=== PATIENT | female | born 2005 | race Caucasian/White ===

== ENCOUNTER 2023-10-21 06:21 | Day surgery (SDC) | payer OTHER, SELFPAY ==
[2023-10-21 08:20] VITALS: BP 135/85
[2023-10-21 08:28] VITALS: BMI 18.4
[2023-10-21 10:05] VITALS: BP 116/79
[2023-10-21 10:15] VITALS: BP 119/72
[2023-10-21 10:30] VITALS: BP 110/77
[2023-10-21 10:45] VITALS: BP 111/71
== END 2023-10-21 11:38 | disposition home or self-care (01) ==
LOC: GI 06:21
PROVIDERS: ATTENDING PHYSICIAN Internal Medicine
DX: E46 Unspecified protein-calorie malnutrition (principal); K44.9 Diaphragmatic hernia without obstruction or gangrene; K31.89 Other diseases of stomach and duodenum; Z46.59 Encounter for fitting and adjustment of other gastrointestinal appliance and device
CPT/HCPCS: 43241; 43239; 88305; 74018; 88342

== ENCOUNTER 2023-12-06 13:56 | Emergency (ER) | payer OTHER, SELFPAY ==
[2023-12-06 13:57] VITALS: BP 130/91
--- NOTE | 2023-12-06 15:15 | ED.GENMED ---
History of Present Illness
General
Chief Complaint: Catheter/Tube Problem
Time Seen by Provider: 12/06/23 15:06
History of Present Illness
History of Present Illness:
Patient presents to the emergency department with concern for nasogastric jejunal tube displacement. Notes this morning it started feeling abnormal and she was vomiting everything she ate. Feels that there may be a coil in her throat. Normally is
at 115 cm but it has been sucked in to around 125 cm.
Phy Exam
Physical Exam
Physical Exam:
General: uncomfortable appearing, holding emesis basin,
Head: NCAT
ENT: R nare with tube at 125cm, able to be drawn back to 115cm. Patient still uncomfortable
Neck, Normal in appearance, no swelling
Respiratory: No Respiratory distress
Abdomen: No distension, no tenderness
Ext: no edema
Neuro: GRACIA, AOx4
Psych: Normal affect
Skin: Normal color
Course
Orders/Labs/Results
Orders:
Orders
12/06/23 15:13
Abdomen Xray - 1 View [CR Abdomen - 1 View] Urgent
Comment:
Reason For Exam: Nasogastric jejunal tube
12/06/23 15:15
CR Chest - 2 Views Urgent
Comment:
Reason For Exam: nasogastric jejunal tube placement
Vital Signs
Initial and Last Documented VS:
Initial Vital Signs
Temp Pulse Resp BP Pulse Ox
99.7 F 100 18 130/91 100
12/06/23 13:57 12/06/23 13:57 12/06/23 13:57 12/06/23 13:57 12/06/23 13:57
Last Documented Vital Signs
Temp Pulse Resp BP Pulse Ox
99.7 F 100 18 130/91 100
12/06/23 13:57 12/06/23 13:57 12/06/23 13:57 12/06/23 13:57 12/06/23 13:57
*Critical Care Note
Total Time (30-74mins, 75-104mins- exclusive of procedures): Not Applicable
ED Attending Note
ED Attending Note
ED Attending Note:
possible misplacement of feeding tube. No resistance to withdrawal to 115cm though patient visibly uncomfortable. Will obtain xrays to view positioning
xrays appear similar to May
patient feeling better after withdrawing NG tube 5 cm. resting comfortably
able to flush NG
patient still resting comfortably
will instruct to follow up with GI doctor
-
Portions of this chart may have been created with voice recognition software.� Occasional wrong word or��sound alike� substitutions may have occurred due to the inherent limitations of voice recognition software.
Discharge Plan
Departure
Patient Disposition: Home (Routine Discharge)
Date of Disposition: 12/06/23
Time of Disposition: 16:50
Patient with high blood pressure during this ER visit?: No
Discharge Problem:
Complication of feeding tube
Prescriptions:
No Action
dextroamphetamine-amphetamine [Adderall] 15 mg Tablet
5 mg PO DAILY PRN (Reason: as needed when adderol wears off)
dextroamphetamine-amphetamine [Adderall XR] 15 mg Capsule,Extended Release 24hr
15 mg PO DAILY
medroxyprogesterone [Depo-Provera] 150 mg/mL Syringe
150 mg IM [id number]
Referrals:
UNKNOWN - PT DOES,NOT KNOW [Family Provider] -
Activity Restrictions/Additional Instructions:
Please call your GI doctor for follow-up appointment. Return to the emergency department with any new or recurring symptoms
Interventions
Interventions:
*Risk Screen - Suicide Last Done: 12/06/23 14:00
*General Assessment Last Done: 12/06/23 14:00
*Neglect/Abuse Screening Last Done: 12/06/23 14:00
ED- Fall Risk Assessment Last Done: 12/06/23 15:14
*ED COVID-19 Vaccine History Last Done: 12/06/23 15:07
KG-Rnjyqv-Hlaklnkace Assessment Last Done: 12/06/23 15:14
ED-Female Genitourinary Assessment Last Done: 12/06/23 15:14
Discharge Date and Time
Print Language: BURUNDIAN
== END 2023-12-06 17:05 | disposition home or self-care (01) ==
LOC: EMR 13:56
PROVIDERS: EMERGENCY PHYSICIAN Emergency Medicine
DX: Z46.59 Encounter for fitting and adjustment of other gastrointestinal appliance and device (principal); R11.10 Vomiting, unspecified
CPT/HCPCS: 99283; 71046; 74018

== ENCOUNTER → 2024-04-30 08:02 | Outpatient (REF) | payer OTHER, SELFPAY | LOC: REG 08:02 | PROVIDERS: ATTENDING PHYSICIAN Internal Medicine; FAMILY PHYSICIAN Physician Assistant Medical | DX: Z97.8 Presence of other specified devices (principal) | CPT/HCPCS: 74019 ==

== ENCOUNTER 2024-06-08 13:51 | Day surgery (SDC) | payer OTHER, SELFPAY ==
[2024-06-08 11:53] VITALS: BP 125/80
[2024-06-08 11:58] VITALS: BMI 19.5
[2024-06-08 12:19] VITALS: BMI 19.5
[2024-06-08 13:36] VITALS: BP 102/65
[2024-06-08 13:50] VITALS: BP 101/54
[2024-06-08 14:05] VITALS: BP 96/65
== END 2024-06-08 14:45 | disposition home or self-care (01) ==
LOC: GI 13:51
PROVIDERS: ATTENDING PHYSICIAN Internal Medicine
DX: T18.3XXA Foreign body in small intestine, initial encounter (principal); W44.8XXA Other foreign body entering into or through a natural orifice, initial encounter; K44.9 Diaphragmatic hernia without obstruction or gangrene
CPT/HCPCS: 43247

== ENCOUNTER 2024-11-15 20:30 | Inpatient (IN) | payer OTHER, SELFPAY ==
[2024-11-15 20:42] VITALS: BP 116/76
[2024-11-15 21:00] LABS: % Basophils 1.9 % (0-2); % Eosinophils 3.4 % (0-6); % Immature Granulocytes 0.2 % (0-0.5); % Lymphocytes 32.3 % (20.5-51.1); % Monocytes 8.5 % (1.7-9.3); % Neutrophils 53.7 % (42.2-75.2); Absolute Basophils 0.1 10^3/uL (0-0.2); Absolute Eosinophils 0.2 10^3/uL (0-0.7); Absolute Lymphocytes 1.5 10^3/uL (1.2-3.4); Absolute Monocytes 0.4 10^3/uL (0.1-0.6); Absolute Neutrophils 2.5 10^3/uL (1.4-6.5); Hematocrit 34.5 % (37.0-47.0); Hemoglobin 12.3 g/dL (12.0-16.0); Mean Corp Hgb Conc. 35.7 g/dL (33.0-37.0); Mean Corpuscular Hgb 29.9 pg (27.0-31.0); Mean Corpuscular Volume 83.9 fL (81.0-99.0); Mean Platelet Volume 11.6 fL (7.4-10.4); Nucleated Red Blood Cells % 0 %; Platelet Count 217 10^3/uL (130-400); Red Blood Cell Count 4.11 10^6/uL (4.20-5.40); Red Cell Dist. Width 11.7 % (11.5-14.5); White Blood Cell Count 4.7 10^3/uL (4.8-10.8)
[2024-11-15 21:20] LABS: HCG, Serum Qualitative Screen Negative
[2024-11-15 21:28] LABS: ALT (SGPT) 12 U/L (0-35); AST (SGOT) 18 U/L (14-36); Albumin 4.5 g/dl (3.5-5.0); Alkaline Phosphatase 58 U/L (38-126); Blood Urea Nitrogen 12 mg/dl (7-17); Calcium 10.1 mg/dl (8.4-10.2); Carbon Dioxide 25 mmol/L (22-30); Chloride 108 mmol/L (98-107); Glucose 105 mg/dl (70-99); Potassium 4.5 mmol/L (3.5-5.1); Sodium 140 mmol/L (135-145); Total Bilirubin 0.8 mg/dl (0.2-1.3); Total Protein 7.1 g/dl (6.3-8.2); eGFR > 60.00
--- NOTE | 2024-11-15 23:15 | ED.SKININJ ---
HPI-Injury
General
Chief Complaint: Bite
Source: patient
Exam Limitations: none
Time Seen by Provider: 11/15/24 22:40
Nursing documentation reviewed up to this point in time: agreed with
History of Present Illness-Injury
Is this injury a work related problem?: No
Initial Injury comments:
Pt presents to ED secondary to worsening right hand pain with swelling, despite taking doxycycline for 4 days, after dog bite injury at work. Patient works at [employer] where the injury occurred, when she was trying to receive the dog from it's
product owner. After the incident, patient was evaluated afterwards and she received tetanus vaccination along with antibiotics. Dog's vaccinations are up-to-date. Denies any other injury. Denies fever or chills. Denies nausea or vomiting. Patient has
noted 'pus drainage' from her hand over the past 24 hours, along with increased pain.
Review of Systems
Review of Systems
Allergies reviewed?: Yes
All Other Systems: ROS reviewed and negative except as documented in HPI and ROS
Constitutional: Reports no symptoms
Respiratory: Reports no symptoms
Cardiac: Reports no symptoms
ABD/GI: Reports no symptoms
Musculoskeletal: Reports no symptoms
Skin: Reports no symptoms
Neurological: Reports no symptoms
Phy Exam
Physical Exam
Physical Exam:
Physical Exam
General: moderate painful distress, not acutely ill. afebrile
Head: nc/at. eomi
Neck: supple. normal range of motion.
Neuro: alert and oriented x 3. no focal neurological deficits
Skin: multiple punctured wounds noted palmar aspect of right hand with increased swelling noted over mid-palm with minimal purulent drainage with tenderness to palpation.
Psychiatric: well kept. interactive and cooperative
Extremities: no edema. no calf tenderness.
Course
Orders/Labs/Results
Orders:
Orders
11/15/24 20:47
Test Result ONCE
11/15/24 20:54
Complete Blood Count/With Diff Urgent
Comprehensive Metabolic Panel Urgent
HCG, Serum Qualitative Screen Urgent
11/15/24 23:01
Ibuprofen [Motrin] 400 mg PO NOW STA
CR Hand - Right 2 Views Urgent
Comment:
Reason For Exam: dog bite with swelling
11/15/24 23:06
Piperacillin/Tazo 3.375 Gram [Zosyn] 3.375 gram in 50 ml IV NOW
11/15/24 23:[address] Non Medication Order As Directed
Physician Order: please complete med rec. thanks
11/15/24 23:22
Blood Culture Q30M
NATHALIA Source: Blood/Venous
Specimen Description:
11/15/24 23:34
Admit/Transfer Patient As Directed
Co-Sign Provider:
Level of Care: Inpatient admission
Assign to:: Medical/Surgical
Physician / Group: marie
Diagnosis: right hand cellulitis
Reason for Hospitalization: right hand cellulitis
Expected length of stay greater than two midnights?: Yes
ELOS- Estimated Length of Stay in days: 3
I certify the patient meets the requirements for IP care: Yes
PRN Pain Medication Management As Directed
May give lesser potent ordered pain med per pt: Yes
preference::
Protocol:: Medication orders for pain may be administered in a
manner that supports deferring to patient preference
when the pt is:
- Requesting an ordered lesser potent pain medication.
Least to most potent pain medications are defined
as: acetaminophen < NSAID < tramadol < opioids
(morphine, oxycodone, hydromorphone).
- Requesting a lesser dose of the same medication IF
ORDERED.
- Requesting a less intrusive route of administration
if both routes are prescribed by the provider (PO <
IV).
11/15/24 23:35
Code Status As Directed
Resuscitation Status: Full Code
11/15/24 23:42
Blood Culture Q30M
NATHALIA Source: Blood/Venous
Specimen Description:
Wound Culture [Wound/Abscess/Other Culture] Routine
NATHALIA Source: Bite
Specimen Description:
Date Specimen was Collected: 11/15/24
Time Specimen was Collected: 23:37
11/15/24 23:47
Ampicillin/Sulbactam 3 G [Unasyn] 3 gm 0.9% Sodium Chloride 100 ml [Nss] 100 ml IV NOW
11/16/24 01:29
Acetaminophen [Tylenol/Feverall] 650 mg RECTAL Q4HPRN PRN
Acetaminophen [Tylenol] 650 mg PO Q4HPRN PRN
11/16/24 01:29
Activity As Directed
Activity Level: Out of Bed-Early Mobility
Intake/ Output As Directed
Frequency: Per unit guidelines
Vital Signs As Directed
Frequency: Per unit guidelines
DX Deep Vein Thrombosis Video Routine
11/16/24 Breakfast
Regular
At Your Request: Full Participation
Does patient need a safe tray?: No
Complete Blood Count/No Diff IN AM
LevoFLOXacin 750 MG/150 ML [Levaquin] 750 mg in 150 ml IV Q24H
MetroNIDAZOLE 500 MG/100 ML [Flagyl 500 mg] 100 ml IV Q8H
11/16/24 08:00
dextroamphetamine-amphetamine [Adderall XR] See Dose Instructions PO DAILY
11/16/24 18:00
Enoxaparin Sodium [Lovenox] 30 mg SC QPM
11/17/24 06:00
Complete Blood Count/No Diff IN AM
11/18/24 06:00
Complete Blood Count/No Diff IN AM
Abnormal Lab Results
11/15/24
20:54
WBC 4.7 L 10^3/uL
(4.8-10.8)
RBC 4.11 L 10^6/uL
(4.20-5.40)
Hct 34.5 L %
(37.0-47.0)
MPV 11.6 H fL
(7.4-10.4)
Chloride 108 H mmol/L
(98-107)
Glucose 105 H mg/dl
(70-99)
11/15/24 20:54
11/15/24 20:54
Vital Signs
Initial and Last Documented VS:
Initial Vital Signs
Temp Pulse Resp BP Pulse Ox
98.2 F 87 18 116/76 99
11/15/24 20:42 11/15/24 20:42 11/15/24 20:42 11/15/24 20:42 11/15/24 20:42
Last Documented Vital Signs
Temp Pulse Resp BP Pulse Ox
97.7 F 75 14 114/65 99
11/16/24 01:29 11/16/24 01:29 11/16/24 01:29 11/16/24 01:29 11/16/24 01:29
MDM/Problems Addressed
MDM/Problems Addressed:
Patient with moderate palmar swelling noted on exam with drainage, concerning for potential development of abscess. As such, patient will be admitted for IV antibiotics, failed outpatient therapy. Patient may require hand surgery consultation, if
symptoms do not improve, will consideration for potential washout of the wound.
Patient does have history of rash when she was a toddler after receiving amoxicillin, resolved after dose of Benadryl, without any other symptoms. As such, in light of dog bite injury, will administer Unasyn, but will infuse very slowly and observe
the patient carefully.
Unasyn administered over 1 hour, rather than recommended 30 minutes, without any abnormal symptoms, i.e. rash/itching/shortness of breath/throat swelling/nausea. Patient transferred to her inpatient bed in stable condition.
*Pulse Oximetry
Patient hypoxic: no
*Critical Care Note
Total Time (30-74mins, 75-104mins- exclusive of procedures): Not Applicable
ED Attending Note
-
Portions of this chart may have been created with voice recognition software.� Occasional wrong word or��sound alike� substitutions may have occurred due to the inherent limitations of voice recognition software.
Discharge Plan
Departure
Patient Disposition: Admit
Date of Disposition: 11/15/24
Time of Disposition: 23:25
Admit to: Med/Surg
Presentation/result/management discussed w/ accepting MD/DO: Hospitalist
Discharge Problem:
Dog bite, Abscess
Interventions
Interventions:
*Risk Screen - Suicide Last Done: 11/15/24 20:42
*General Assessment Last Done: 11/15/24 20:42
*Neglect/Abuse Screening Last Done: 11/15/24 20:42
*ED- Fall Risk Assessment Last Done: 11/16/24 01:14
*ED COVID-19 Vaccine History Last Done: 11/16/24 01:14
*Nursing Disposition Last Done: 11/16/24 01:14
ED-Skin Assessment Last Done: 11/15/24 23:00
Discharge Date and Time
Discharge Date/Time: 11/16/24 01:15
--- NOTE | 2024-11-15 23:18 | HPS.HSE ---
Family Physician
-
Family Physician: Goldie Rossi
Chief Complaint
-
dog bite
History of Present Illness
19 year old with PMH for SMA's, gastroparesis, lupus, ADHD presented to us with dog bite on Tuesday. patient works for [employer]. she was bit by her customer dog on her right hand. she was evaluated by at urgent care and prescribed doxy with no
relief in her pain and the wound is not healing. denied fever, chills, chest pain, sob. denied SCANLON, dizzy or syncope. denied abdominal pain,n,v,d.denied dysuria or hematuria.
patient is upto date with Tetanus. Dog is rabies vaccinated.
Blood culture and wound culture ordered in ER. Patient received a dose of Motrin, Zosyn in ER. X-ray of right hand pending. Admitted for further management
Medical History
Past Medical History
Past Medical History: Reports Other
Additional Past Medical History:
Anxiety
ADHD
Gastroparesis
SMAS
Past Surgical History: Reports Other
Additional Past Surgical History:
[place] teeth extraction
hymenectomy
Social History
Tobacco: Non-smoker
Alcohol: Occasional
Drug: None
Living: With Family
Employment: Employed
Family History
Family History: Not pertinent
Allergies / Home Medications
Allergies reflects when Allergies were last updated in [facility].
Home Medications with original date entered in [facility]
Allergy/Medication List:
Allergies
Allergy/AdvReac Type Severity Reaction Status Date / Time
amoxicillin (Amoxicillin) Allergy Hives Verified 06/08/24 11:50
Home Medications
dextroamphetamine-amphetamine 15 mg tablet (Adderall) 5 mg PO DAILY PRN as needed when adderol wears off 08/25/22
dextroamphetamine-amphetamine ER 15 mg 24hr capsule,extend release (Adderall XR) 15 mg PO DAILY 10/21/23
medroxyprogesterone 150 mg/mL intramuscular syringe (Depo-Provera) 150 mg IM [id number] 10/21/23
Review of Systems
-
Constitutional: Reports No Symptoms
EENT: Reports No Symptoms
Respiratory: Reports No Symptoms
Cardiac: Reports No Symptoms
Abdomen/GI: Reports No Symptoms
: Reports No Symptoms
Musculoskeletal: Reports No Symptoms
Skin: Reports Other (Right hand dog bite wound)
Neurological: Reports No Symptoms
Endocrine: Reports No Symptoms
Hematologic/Lymphatic: Reports No Symptoms
Psych: Reports No Symptoms
Physical Exam
Vital Signs
Vital Signs
Temp Pulse Resp BP Pulse Ox
98.2 F 87 18 116/76 99
11/15/24 20:42 11/15/24 20:42 11/15/24 20:42 11/15/24 20:42 11/15/24 20:42
Physical Exam
General: Well Developed, Well Nourished and No Apparent Distress
HEENT: NormoCephalic, Moist mucous membranes and Atraumatic
Respiratory: Clear
Cardiac: S1/S2 and Regular Rhythm; No Murmur or Rub
GI: Soft, Non Tender, Non Distended and Normal Bowel Sounds; No Organomegaly
Rectal: Deferred by Provider
Musculoskeletal: No Clubbing, No Cyanosis and No Edema
Skin: Rash and Other (right hand wound)
Neuro: Nonfocal/grossly intact
Laboratory Results
-
11/15/24 20:54
11/15/24 20:54
Laboratory Results
Total Bilirubin 0.8 mg/dl (0.2-1.3) 11/15/24 20:54
AST 18 U/L (14-36) 11/15/24 20:54
ALT 12 U/L (0-35) 11/15/24 20:54
Alkaline Phosphatase 58 U/L (38-126) 11/15/24 20:54
Impression/Plan
-
# Right hand cellulitis secondary to dog bite
- Failed outpatient therapy
- WBCs 4.0
- X-ray of the right hand pending
- IV Zosyn in ER
- Blood culture sent from ER
- Wound culture ordered
- IV Levaquin and Flagyl continue
- Tylenol as needed for fever or pain
# History of ADHD
- Adderall continued
DVT prophylaxis: Lovenox subcu
# CODE STATUS
-Full code
-
[2024-11-15] MEDS: MOTRIN 400 MG PO (23:34)
--- NOTE | 2024-11-15 23:40 | W.PN.UPDATE ---
Update Note
Progress Note Update
This is an addendum to H&P written by Gisela Tristan on 11/15/2024. Patient seen and examined independently with ENGINEER FIRST ASSISTANT.
19-year-old female past medical history of ADHD, gastroparesis, lupus, SMA stenosis presenting for dog bite that occurred on 11/11 with drainage. Has numbness of hand. She works at [employer] and got bit by a dog by customer. Dog did get the
vaccinations. Patient did get tetanus vaccination.
Hand x-ray pending. Blood cultures pending. Wound culture checked at urgent care. Patient with allergy to amoxicillin as child but ER attempting dose of Unasyn.
Will continue Levqauin/Flagyl afterwards just in case.
[2024-11-16] MEDS: UNASYN IV ×3 (00:08→23:50)
[2024-11-16 01:29] VITALS: BP 114/65; BMI 19.7
--- NOTE | 2024-11-16 01:50 | TRANSFER ---
Pt transferred to unit via stretcher. Pt was accompanied by her Mother, and oriented to the room. and surroundings. AAOx3. VSS. Call [facility] within reach. Plan of care ongoing.
[2024-11-16] MEDS: FLAGYL 500 MG 100 IV ×2 (05:00→13:55)
[2024-11-16] MEDS: LEVAQUIN 150 IV (06:10)
[2024-11-16 07:00] VITALS: BP 95/61
--- NOTE | 2024-11-16 07:06 | W.PN.HOSP.TC ---
Today's Communication/Plan
-
cont abx as per ID
wound care
pain control
Assessment / Plan
Assessment / Plan
Physical Exam
General: no acute distress, appears comfortable at this time
HEENT: NormoCephalic, Moist mucous membranes and Atraumatic
Respiratory: Clear
Cardiac: S1/S2 and Regular Rhythm; No Murmur or Rub
GI: Soft, Non Tender, Non Distended and Normal Bowel Sounds; No Organomegaly
Musculoskeletal: No Clubbing, No Cyanosis and No Edema. Right hand wound dressing, clean dry intact
Neuro: AOx3 conversant coherent
Psych: calm
19F SMA stenosis Gastroparesis Lupus ADHD here for Right hand dog bite wound infection failed outpt treatment with Doxycycline.
# Right hand cellulitis secondary to dog bite
#Mild Leukopenia
- Failed outpatient therapy
- trend WBC
- X-ray right hand appreciated no acute abn's fracture/dislocation/soft tissue air/radiopaque foreign body
- received IV Zosyn, Levaquin, Flagyl
- Follow blood wound cultures
- Tylenol as needed for fever or pain
- Tramadol prn mod severe pain
- wound care appreciated
- ID eval appreciated abx switched to unasyn, cont
#Lupus
controlled with weekly injections on Tue
# History of ADHD
- Adderall continued patient's own med
DVT prophylaxis: Lovenox subcu
# CODE STATUS
-Full code
discussed with patient and patient's Father Frederick
I spent a total of 45 minutes with the patient or on the floor. More than 50% of this time involved counseling and coordination of care.
Anticipated Discharge: 24 - 48 hours
Subjective/Interval History
-
Date of Service: November 16, 2024
Seen and examined at bedside in no acute distress sitting up comfortably in bed with Father Frederick present during evaluation. Endorses significant improvement in swelling and pain since admission and IV abx. Reports some numbness in central palm.
Denies fever chills.
Objective Data
-
Labs:
Laboratory Results
11/15/24 11/16/24
20:54 06:00
WBC 4.7 L Pending
Hgb 12.3 Pending
Hct 34.5 L Pending
Plt Count 217 Pending
Sodium 140
Potassium 4.5
Chloride 108 H
Carbon Dioxide 25
BUN 12
Creatinine 0.6
Glucose 105 H
Calcium 10.1
Total Bilirubin 0.8
AST 18
ALT 12
Alkaline Phosphatase 58
Vital Signs:
Vital Signs
Temp Pulse Resp BP Pulse Ox
97.7 F 75 14 114/65 99
11/16/24 01:29 11/16/24 01:29 11/16/24 01:29 11/16/24 01:29 11/16/24 01:29
[2024-11-16] MEDS: TYLENOL 650 MG PO (07:46)
[2024-11-16 08:07] LABS: Hematocrit 31.1 % (37.0-47.0); Hemoglobin 11.1 g/dL (12.0-16.0); Mean Corp Hgb Conc. 35.7 g/dL (33.0-37.0); Mean Corpuscular Hgb 29.9 pg (27.0-31.0); Mean Corpuscular Volume 83.8 fL (81.0-99.0); Mean Platelet Volume 11.7 fL (7.4-10.4); Platelet Count 186 10^3/uL (130-400); Red Blood Cell Count 3.71 10^6/uL (4.20-5.40); Red Cell Dist. Width 11.7 % (11.5-14.5); White Blood Cell Count 3.7 10^3/uL (4.8-10.8)
--- NOTE | 2024-11-16 12:23 | WOUNDNOTE ---
[facility] RN NOTE: Reviewed chart and met with patient. Patient with dog bite to right hand that occurred 5 days ago. The wound appears to be scabbed over now with some scant scant swelling around the wound. No drainage noted. Patient and mother commented
that wound has improved a lot since starting antibiotics. Patient preferred that all scattered scabs be covered with Xeroform dressing. She reports some numbness in hand as well. Orders confirmed and [place] updated. Will sign off.
[2024-11-16] MEDS: ULTRAM 25 MG PO (14:10)
[2024-11-16 15:16] VITALS: BP 97/57
--- NOTE | 2024-11-16 16:24 | CM ---
housekeeping manager reviewed patient's chart and met with patient and patient lives with her parents is independent with adl's and ambulation, no dme, patient was admitted after a dog bite, patient to return to home when stable.
PCP: Goldie Rossi
Pharmacy: [facility] in [place]
Plan; Home when stable no needs.
--- NOTE | 2024-11-16 16:29 | CON.ID ---
Consultation
-
Date/Time Consultation Requested: 11/16/2024 0953
Date/Time Consultation Performed: 11/16/2024 1600
Requesting Provider: Dr. Pierre
Performing Provider: Dr. Ang
Reason for Consultation: Right hand dog bite
Chief Complaint / Past History
History of Present Illness
Apple Willett is a 19-year-old female with a significant past medical history of lupus (on Benlysta) being evaluated at the request of Dr. Pierre regarding a right hand dog bite. History is obtained from chart review, along with patient
interview. Additional history was obtained from the patient's father who is at the bedside.
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 The dog is up-to-date with rabies vaccine. Following the bite the area was cleaned, but she did not
bleeding. She was taken to a local urgent care center, and because of her reported history of amoxicillin allergy, she was started on doxycycline. She followed up with a checkup several days later, and they reported that the area looked okay, but
when she went back yesterday, the area look worse and she was sent to the emergency room for further evaluation. In the ER she received a dose of Unasyn without reaction, but was placed on levofloxacin and metronidazole. Infectious Diseases is now
asked to comment upon further antimicrobial therapy.
At the present time she denies any fevers or chills. She reports at worst the pain was 6/10, but currently it is 1/10. She notes no erythema extending up her wrist or forearm. She denies any axillary adenopathy. She does have some decreased
active extension secondary to discomfort, as well as active flexion of the hand.
Past History
Additional Past Medical History:
Gastroparesis
SMA syndrome
Lupus (on Benlysta)
Past Surgical History: None
Allergy History:
No Known Allergies Allergy (Unverified 11/16/24 16:28)
Medications Reviewed: Yes
Current Antibiotics:
Levofloxacin
Metronidazole
Social History
Tobacco: Non-Smoker
Alcohol: Occasional
Drug: None
Personal: Single
Living: With Family
Employment: Employed
Family History
Family History: Not Pertinent
Review of Systems
Vital Signs
Temp Pulse Resp BP Pulse Ox
97.9 F 77 19 97/57 99
11/16/24 15:16 11/16/24 15:16 11/16/24 15:16 11/16/24 15:16 11/16/24 15:16
Physical Exam
Physical Exam
Constitutional: No Acute Distress, Well Developed, Comfortable and Non-toxic
Eyes: No Conjunctival Hemorrhage and Sclera Anicteric
Oral: No Thrush and No Ulcers
Cardiovascular: S1/S2; Negative S3/S4 or Murmur
Pulmonary: Non Labored
Gastrointestinal: Soft and Non Tender
Extremities: Edema (Right hand) and Erythema (Right hand palmar surface)
Wound: Other (Several wounds noted on the right hand, with the largest approximately 1 cm at the base of the third finger. Mild surrounding tenderness. No drainage at present. No significant erythema.)
Psychological: Calm
Lab / Diagnostic Study Results
11/16/24 07:30
11/15/24 20:54
Abs Immat Gran (auto) 0.0 10^3/uL (0-0.05) 11/15/24 20:54
Absolute Neuts (auto) 2.5 10^3/uL (1.4-6.5) 11/15/24 20:54
Absolute Lymphs (auto) 1.5 10^3/uL (1.2-3.4) 11/15/24 20:54
Absolute Monos (auto) 0.4 10^3/uL (0.1-0.6) 11/15/24 20:54
Absolute Basos (auto) 0.1 10^3/uL (0-0.2) 11/15/24 20:54
Immature Gran % 0.2 % (0-0.5) 11/15/24 20:54
Neutrophils % 53.7 % (42.2-75.2) 11/15/24 20:54
Lymphocytes % 32.3 % (20.5-51.1) 11/15/24 20:54
Monocytes % 8.5 % (1.7-9.3) 11/15/24 20:54
Eosinophils % 3.4 % (0-6) 11/15/24 20:54
Basophils % 1.9 % (0-2) 11/15/24 20:54
Microbiology Results
Micro:
11/15/24 23:42 Blood Culture - Pending
Blood/Venous
11/15/24 23:22 Blood Culture - Pending
Blood/Venous
11/15/24 23:42 Wound Culture - Pending
Bite Gram Stain - Preliminary
11/16/24 01:45 MRSA Screen - Pending
Nose
Assessment / Plan
Right hand dog bite; failed outpatient doxycycline therapy
SSTI right hand
Lupus (on Benlysta)
Hx SMA syndrome
Gastroparesis
Recommendations:
Continue with Unasyn.
Follow pending wound culture.
Monitor white count and temperature curve.
Would anticipate an additional 48 hours of IV antibiotics, and if improved clinically, transition to Augmentin.
Local care to the wounds
[2024-11-16] MEDS: LOVENOX SC (17:29)
[2024-11-16 22:40] VITALS: BP 104/68
[2024-11-16 23:25] VITALS: BP 104/68
[2024-11-17] MEDS: XANAX 0.25 MG PO (00:25)
[2024-11-17] MEDS: UNASYN IV ×3 (05:47→18:11)
[2024-11-17 07:07] LABS: Hematocrit 31.4 % (37.0-47.0); Hemoglobin 11.3 g/dL (12.0-16.0); Mean Corpuscular Hgb 30.2 pg (27.0-31.0); Mean Platelet Volume 11.8 fL (7.4-10.4); Platelet Count 187 10^3/uL (130-400); Red Blood Cell Count 3.74 10^6/uL (4.20-5.40); Red Cell Dist. Width 11.9 % (11.5-14.5); White Blood Cell Count 4.2 10^3/uL (4.8-10.8)
--- NOTE | 2024-11-17 07:08 | W.PN.HOSP.TC ---
Today's Communication/Plan
-
cont abx as per ID
Assessment / Plan
Assessment / Plan
Physical Exam
General: no acute distress, appears comfortable at this time
HEENT: NormoCephalic, Moist mucous membranes and Atraumatic
Respiratory: Clear
Cardiac: S1/S2 and Regular Rhythm; No Murmur or Rub
GI: Soft, Non Tender, Non Distended and Normal Bowel Sounds; No Organomegaly
Musculoskeletal: No Clubbing, No Cyanosis and No Edema. Right hand wound dressing, clean dry intact
Neuro: AOx3 conversant coherent
Psych: calm
19F SMA stenosis Gastroparesis Lupus ADHD here for Right hand dog bite wound infection failed outpt treatment with Doxycycline.
# Right hand cellulitis secondary to dog bite
#Mild Leukopenia
- Failed outpatient therapy
- trend WBC
- X-ray right hand appreciated no acute abn's fracture/dislocation/soft tissue air/radiopaque foreign body
- received IV Zosyn, Levaquin, Flagyl
- Follow blood wound cultures
- Tylenol as needed for fever or pain
- Tramadol prn mod severe pain
- wound care appreciated
- ID eval appreciated abx switched to unasyn, cont
#Lupus
controlled with weekly injections on Tue
# History of ADHD
- Adderall continued patient's own med
DVT prophylaxis: Lovenox subcu
# CODE STATUS
-Full code
I spent a total of 40 minutes with the patient or on the floor. More than 50% of this time involved counseling and coordination of care.
Anticipated Discharge: 24 - 48 hours
Subjective/Interval History
-
Date of Service: November 17, 2024
no acute distress sitting up comfortable in bed. Overall reports feeling relatively well. Pain well controlled with current regimen. Notes some improvement in right hand, difficulty extending hand persists but able to make fist.
Objective Data
-
Labs:
Laboratory Results
11/17/24
06:06
WBC 4.2 L
Hgb 11.3 L
Hct 31.4 L
Plt Count 187
Vital Signs:
Vital Signs
Temp Pulse Resp BP Pulse Ox
97.5 F 65 18 104/68 99
11/16/24 23:25 11/16/24 23:25 11/16/24 23:25 11/16/24 23:25 11/16/24 23:25
I&O
11/16/24 11/17/24 11/18/24
06:59 06:59 06:59
Intake Total 900 / 900
Balance 900 / 900
[2024-11-17 07:34] VITALS: BP 96/60
--- NOTE | 2024-11-17 12:36 | W.PN.ID1 ---
Date of Service
Date of Service: November 17, 2024
Today's Communication
Continue Unasyn.
Assessment / Plan
Right hand dog bite; failed outpatient doxycycline therapy
SSTI right hand
Lupus (on Benlysta)
Hx SMA syndrome
Gastroparesis
Recommendations:
Continue with Unasyn.
Follow pending wound culture.
Monitor white count and temperature curve.
Would anticipate an additional 24-48 hours of IV antibiotics, and if improved clinically, transition to Augmentin.
Local care to the wounds
Chief Complaint
-: Other (Right hand dog bite, cellulitis)
Subjective / Review of Systems
Patient seen and examined. Reports hand is feeling mildly better. Still with some discomfort. Although she cannot fully extend her hand, she can now make a fist. No difficulty with antibiotics.
Vital Signs / Physical Exam
Vital Signs
Vital Signs
Temp Pulse Resp BP Pulse Ox
97.3 F 66 18 96/60 100
11/17/24 07:34 11/17/24 07:34 11/17/24 07:34 11/17/24 07:34 11/17/24 07:34
Physical Exam
Constitutional: No Acute Distress, Well Developed, Comfortable and Non-toxic
Eyes: Sclera Anicteric
Pulmonary: Non Labored
Musculoskeletal: Other (Increased flexion of hand and fingers.)
Wound: Other (Right hand dressed. No erythema extending up the wrist or forearm.)
Neurological: Awake, Alert and Oriented
Psychological: Calm
Objective Data
Lab Data
Lab Results
11/17/24 06:06
11/15/24 20:54
Total Bilirubin 0.8 mg/dl (0.2-1.3) 11/15/24 20:54
AST 18 U/L (14-36) 11/15/24 20:54
ALT 12 U/L (0-35) 11/15/24 20:54
Alkaline Phosphatase 58 U/L (38-126) 11/15/24 20:54
Most recent labs reviewed.
Micro Results:
11/16/24 01:45 MRSA Screen - Final
Nose No Methicillin Resistant Staphylococcus aureus isolated.
11/15/24 23:22 Blood Culture - Preliminary
Blood/Venous No Growth in 24 hours- Final report to follow
11/15/24 23:42 Blood Culture - Preliminary
Blood/Venous No Growth in 24 hours- Final report to follow
11/15/24 23:42 Wound Culture - Pending
Bite Gram Stain - Preliminary
[2024-11-17] MEDS: ULTRAM 50 MG PO (13:14)
[2024-11-17 15:38] VITALS: BP 100/62
[2024-11-17] MEDS: LOVENOX 30 MG SC (18:11)
[2024-11-17 23:20] VITALS: BP 105/71
[2024-11-18] MEDS: UNASYN IV ×5 (00:16→23:00)
[2024-11-18 06:24] LABS: Hematocrit 32.4 % (37.0-47.0); Hemoglobin 11.5 g/dL (12.0-16.0); Mean Corp Hgb Conc. 35.5 g/dL (33.0-37.0); Mean Corpuscular Hgb 30.3 pg (27.0-31.0); Mean Corpuscular Volume 85.5 fL (81.0-99.0); Mean Platelet Volume 11.9 fL (7.4-10.4); Platelet Count 172 10^3/uL (130-400); Red Blood Cell Count 3.79 10^6/uL (4.20-5.40); Red Cell Dist. Width 11.8 % (11.5-14.5); White Blood Cell Count 4.1 10^3/uL (4.8-10.8)
[2024-11-18 06:49] LABS: Blood Urea Nitrogen 7 mg/dl (7-17); Calcium 9.3 mg/dl (8.4-10.2); Carbon Dioxide 28 mmol/L (22-30); Chloride 106 mmol/L (98-107); Estimated Creatinine Clearance 101 ml/min; Glucose 89 mg/dl (70-99); Potassium 4.4 mmol/L (3.5-5.1); Sodium 138 mmol/L (135-145); eGFR > 60.00
[2024-11-18 08:00] VITALS: BP 97/64
--- NOTE | 2024-11-18 08:25 | W.PN.HOSP.TC ---
Today's Communication/Plan
-
cont abx as per ID
check MRI
follow cultures
Encourage ambulation, out of bed to chair
Assessment / Plan
Assessment / Plan
Physical Exam
General: no acute distress, appears comfortable at this time
HEENT: NormoCephalic, Moist mucous membranes and Atraumatic
Respiratory: Clear
Cardiac: S1/S2 and Regular Rhythm; No Murmur or Rub
GI: Soft, Non Tender, Non Distended and Normal Bowel Sounds; No Organomegaly
Musculoskeletal: No Clubbing, No Cyanosis and No Edema. Right hand wound dressing, clean dry intact, difficulty extending hand fingers noted, able to make fist
Neuro: AOx3 conversant coherent
Psych: calm
19F SMA stenosis Gastroparesis Lupus ADHD here for Right hand dog bite wound infection failed outpt treatment with Doxycycline.
# Right hand cellulitis secondary to dog bite
#Mild Leukopenia
- Failed outpatient therapy
- trend WBC
- X-ray right hand appreciated no acute abn's fracture/dislocation/soft tissue air/radiopaque foreign body
- received IV Zosyn, Levaquin, Flagyl
- Follow blood wound cultures wound cultures prelim pos for staph
- Tylenol as needed for fever or pain
- Tramadol prn mod severe pain
- wound care appreciated
- ID eval appreciated abx switched to unasyn, continue, checking MRI hand to asses for tendon issue/tenosynovitis/abscess
#Lupus
controlled with weekly Benlysta injections on Tue
# History of ADHD
- Adderall continued patient's own med (patient however reports she does not need at this time)
DVT prophylaxis: Lovenox subcu
# CODE STATUS
-Full code
I spent a total of 40 minutes with the patient or on the floor. More than 50% of this time involved counseling and coordination of care.
Anticipated Discharge: 24 - 48 hours
Subjective/Interval History
-
Date of Service: November 18, 2024
No acute distress sitting up comfortably in bed. Reports swelling improved but continues to have difficulty extending her fingers hand. Able to make fist
Objective Data
-
Labs:
Laboratory Results
11/18/24
05:47
WBC 4.1 L
Hgb 11.5 L
Hct 32.4 L
Plt Count 172
Sodium 138
Potassium 4.4
Chloride 106
Carbon Dioxide 28
BUN 7
Creatinine 0.7
Glucose 89
Calcium 9.3
Vital Signs:
Vital Signs
Temp Pulse Resp BP Pulse Ox
98.3 F 70 18 105/71 100
11/17/24 23:20 11/17/24 23:20 11/17/24 23:20 11/17/24 23:20 11/17/24 23:20
I&O
11/17/24 11/18/24 11/19/24
06:59 06:59 06:59
Intake Total 900 / 900 480 / 480
Balance 900 / 900 480 / 480
--- NOTE | 2024-11-18 10:02 | W.PN.ID1 ---
Date of Service
Date of Service: November 18, 2024
Today's Communication
Continue antibiotics. Check MRI
Assessment / Plan
Right hand dog bite; failed outpatient doxycycline therapy
SSTI right hand
Lupus (on Benlysta)
Hx SMA syndrome
Gastroparesis
Recommendations:
Continue with Unasyn.
Wound culture with staph species.
Monitor white count and temperature curve.
At present, limited clinical improvement. Patient continues to have inability to fully extend hand.
Check MRI to assess for tendon issue/tenosynovitis/abscess
Local care to the wounds
����������������������������������������������������������
Chief Complaint
-: Other (Right hand dog bite, cellulitis)
Subjective / Review of Systems
Patient seen and examined. Overall feels well, but notes ongoing pain in the right hand, especially with any extension. Pain located deep to the third metacarpal bite area. No purulence.
Review of Systems: No Fever and No Chills
Vital Signs / Physical Exam
Vital Signs
Vital Signs
Temp Pulse Resp BP Pulse Ox
97.9 F 73 17 97/64 99
11/18/24 08:00 11/18/24 08:00 11/18/24 08:00 11/18/24 08:00 11/18/24 08:00
Physical Exam
Constitutional: No Acute Distress, Comfortable and Non-toxic
Eyes: Sclera Anicteric
Pulmonary: Non Labored
Musculoskeletal: Other (Increased flexion of hand and fingers. Ongoing inability to extend 2nd, 3rd and 4th fingers.)
Wound: Other (Right hand dressed. No erythema extending up the wrist or forearm.)
Neurological: Awake, Alert and Oriented
Psychological: Calm
Objective Data
Lab Data
Lab Results
11/18/24 05:47
11/18/24 05:47
Estimated Creat Clear 101 ml/min 11/18/24 05:47
Total Bilirubin 0.8 mg/dl (0.2-1.3) 11/15/24 20:54
AST 18 U/L (14-36) 11/15/24 20:54
ALT 12 U/L (0-35) 11/15/24 20:54
Alkaline Phosphatase 58 U/L (38-126) 11/15/24 20:54
Most recent labs reviewed.
Micro Results:
11/15/24 23:22 Blood Culture - Preliminary
Blood/Venous No Growth in 48 hours- Final report to follow
11/15/24 23:42 Blood Culture - Preliminary
Blood/Venous No Growth in 48 hours- Final report to follow
11/15/24 23:42 Wound Culture - Preliminary
Bite Staphylococcus species
Gram Stain - Preliminary
11/16/24 01:45 MRSA Screen - Final
Nose No Methicillin Resistant Staphylococcus aureus isolated.
[2024-11-18 10:32] VITALS: BP 91/55; PULSE 79; O2SAT 98
[2024-11-18 16:00] VITALS: BP 98/67
[2024-11-18] MEDS: LOVENOX SC (18:06)
[2024-11-18] MEDS: ULTRAM 25 MG PO (20:48)
[2024-11-19 00:10] VITALS: BP 108/77
[2024-11-19] MEDS: UNASYN IV ×2 (05:34→12:23)
[2024-11-19 06:28] LABS: Hematocrit 33.9 % (37.0-47.0); Hemoglobin 11.9 g/dL (12.0-16.0); Mean Corp Hgb Conc. 35.1 g/dL (33.0-37.0); Mean Corpuscular Hgb 30.2 pg (27.0-31.0); Mean Platelet Volume 11.5 fL (7.4-10.4); Platelet Count 190 10^3/uL (130-400); Red Blood Cell Count 3.94 10^6/uL (4.20-5.40); Red Cell Dist. Width 11.6 % (11.5-14.5); White Blood Cell Count 4.1 10^3/uL (4.8-10.8)
[2024-11-19 06:47] LABS: Blood Urea Nitrogen 6 mg/dl (7-17); Calcium 9.6 mg/dl (8.4-10.2); Carbon Dioxide 29 mmol/L (22-30); Chloride 107 mmol/L (98-107); Estimated Creatinine Clearance 101 ml/min; Glucose 98 mg/dl (70-99); Potassium 4.6 mmol/L (3.5-5.1); Sodium 141 mmol/L (135-145); eGFR > 60.00
[2024-11-19 07:00] VITALS: BP 93/54
--- NOTE | 2024-11-19 10:36 | W.PN.HOSP.TC ---
Today's Communication/Plan
-
dc home today
PCP f/u
Assessment / Plan
Assessment / Plan
Assessment:
Right hand cellulitis secondary to dog bite
Mild Leukopenia
- Failed outpatient therapy
- MRI: Focal soft tissue swelling and edema involving the volar subcutaneous tissues of the third digit at the level of the MCP joint, consistent with cellulitis. No loculated fluid collections. Intact underlying flexor tendons and bones.
- d/w ID and ok to dc with 10 days of Augmentin. Patient advised that any increase in pain, swelling or the development of drainage should prompt further evaluation, potentially with a hand surgeon.
- prn pain control
Lupus
- controlled with weekly Benlysta injections on Tue
History of ADHD
- Adderall continued patient's own med (patient however reports she does not need at this time)
DVT prophylaxis: Lovenox
Code: Full
More than 30 minutes spent in discharge including
Final examination of the patient
Summarizing hospital stay
Instructions for continuing care to all relevant caregivers
Preparation of discharge records, prescriptions, and referral forms
Total time spent (in minutes): 41
Anticipated Discharge: Today
Subjective/Interval History
-
Date of Service: November 19, 2024
resting comfortably, no complaints at present
able to flex 2nd/3rd/4th fingers more easily
Objective Data
-
Labs:
Laboratory Results
11/19/24
06:06
WBC 4.1 L
Hgb 11.9 L
Hct 33.9 L
Plt Count 190
Sodium 141
Potassium 4.6
Chloride 107
Carbon Dioxide 29
BUN 6 L
Creatinine 0.7
Glucose 98
Calcium 9.6
Vital Signs:
Vital Signs
Temp Pulse Resp BP Pulse Ox
98.3 F 68 18 93/54 100
11/19/24 07:00 11/19/24 07:00 11/19/24 07:00 11/19/24 07:00 11/19/24 07:00
I&O
11/18/24 11/19/24 11/20/24
06:59 06:59 06:59
Intake Total 480 / 480 460 / 460
Balance 480 / 480 460 / 460
Physical Exam
-
General: No Apparent Distress
HEENT: Normocephalic and Atraumatic
Respiratory: Negative Wheezes
Cardiac: Regular Rhythm and S1/S2
GI: Soft and Nontender
Neuro: AO x 3
Hematologic / Lymphatic: No Lymphadenopathy
Psych: Calm
Data Reviewed
-
Total Time Spent with Patient (in minutes): 42
Labs: Labs Reviewed by me
--- NOTE | 2024-11-19 13:10 | W.PN.ID1 ---
Date of Service
Date of Service: November 19, 2024
Today's Communication
Continue abx. Transition to oral augmentin at D/C. See below
Assessment / Plan
Right hand dog bite; failed outpatient doxycycline therapy
SSTI right hand
Lupus (on Benlysta)
Hx SMA syndrome
Gastroparesis
Recommendations:
Patient with increased hand extension today, although notes some ongoing discomfort with active ROM.
Hand cultures have revealed Staphylococcus intermedius, but this was a superficial swab, and likely reflects skin contaminant.
Continue antibiotics, but can transition to Augmentin 875 mg p.o. twice daily for an additional 10 days of therapy.
Patient advised that any increase in pain, swelling or the development of drainage should prompt further evaluation, potentially with a hand surgeon.
Continue local care to the wounds
����������������������������������������������������������
Chief Complaint
-: Other (Right hand dog bite, cellulitis)
Subjective / Review of Systems
Review of Systems: No Fever and No Chills
Vital Signs / Physical Exam
Vital Signs
Vital Signs
Temp Pulse Resp BP Pulse Ox
98.3 F 68 18 93/54 100
11/19/24 07:00 11/19/24 07:00 11/19/24 07:00 11/19/24 07:00 11/19/24 07:00
Physical Exam
Constitutional: No Acute Distress, Comfortable and Non-toxic
Eyes: Sclera Anicteric
Pulmonary: Non Labored
Extremities: Negative Edema, Cyanosis or Erythema
Wound: Other (Subcentimeter wound over fifth metacarpal head without periwound erythema, drainage, but ongoing tenderness noted)
Neurological: Awake and Alert
Psychological: Calm
Objective Data
Lab Data
Lab Results
11/19/24 06:06
11/19/24 06:06
Estimated Creat Clear 101 ml/min 11/19/24 06:06
Total Bilirubin 0.8 mg/dl (0.2-1.3) 11/15/24 20:54
AST 18 U/L (14-36) 11/15/24 20:54
ALT 12 U/L (0-35) 11/15/24 20:54
Alkaline Phosphatase 58 U/L (38-126) 11/15/24 20:54
Most recent labs reviewed.
Micro Results:
11/15/24 23:22 Blood Culture - Preliminary
Blood/Venous No Growth in 72 hours- Final report to follow
11/15/24 23:42 Blood Culture - Preliminary
Blood/Venous No Growth in 72 hours- Final report to follow
11/15/24 23:42 Wound Culture - Final
Bite Staphylococcus intermedius
Gram Stain - Final
11/16/24 01:45 MRSA Screen - Final
Nose No Methicillin Resistant Staphylococcus aureus isolated.
Imaging:
11/18/2024 MRI right hand: Bones and bone marrow are normal. No erosions. No ligamental tears are noted. Flexor and extensor tendons are normal. There is subcutaneous focal soft tissue swelling and edema involving the volar subcutaneous tissues
of the right third digit at the level of the MCP joint. No fluid collections are noted. Intact underlying flexor tendons and bones. Please see full dictation for additional detail.
Care Review
Plan reviewed with: Physician (Hospitalist)
[2024-11-19] MEDS: ADDERALL 10 MG PO (13:57)
--- NOTE | 2024-11-19 14:21 | W.DS.TRANS ---
DC Summary - Scientologist
-
Discharge Instructions:
Discharge Diagnosis/Procedures dog bite cellulitis, R hand
Diet Regular
Activity As tolerated
Instructions:
Stand-Alone Forms:
Changes to Home Medications: No
Discharge Medications:
DC Medications w/original date entered in [facility]
dextroamphetamine-amphetamine ER 15 mg 24hr capsule,extend release (Adderall XR) 20 mg PO DAILY 10/21/23
medroxyprogesterone 150 mg/mL intramuscular syringe (Depo-Provera) 150 mg IM [id number] 10/21/23
amoxicillin 875 mg-potassium clavulanate 125 mg tablet 1 tab PO BID #20 tabs 11/19/24
tramadol 50 mg tablet 25 mg (1/2 x 50 mg) PO [id number] PRN moderate pain #10 tabs 11/19/24
Home Medication Changes
Pending Results: No
Total time spent discharging patient (in min): 41
--- NOTE | 2024-11-19 14:30 | CM ---
Chart reviewed and home no needs when stable.
Plan; Home no needs.
--- NOTE | 2024-11-19 15:45 | PTCARENOTE ---
Per MD Selby, ok to adjust patient's work note to resume activities after 11/30
[2024-11-19 15:52] VITALS: BP 111/69
== END 2024-11-19 17:21 | disposition home or self-care (01) | DRG 603 ==
LOC: 4 WEST ACU 20:30
PROVIDERS: Internal Medicine; Registered Nurse; Student in an Organized Health Care Education/Training Program; ADMITTING PHYSICIAN Hospitalist; ATTENDING PHYSICIAN Internal Medicine; CONSULT PHYSICIAN Internal Medicine Infectious Disease; EMERGENCY PHYSICIAN Emergency Medicine; FAMILY PHYSICIAN Physician Assistant Medical
DX: L03.113 Cellulitis of right upper limb (principal); K55.1 Chronic vascular disorders of intestine; S61.451A Open bite of right hand, initial encounter; W54.0XXA Bitten by dog, initial encounter; F90.9 Attention-deficit hyperactivity disorder, unspecified type; Y99.0 Civilian activity done for income or pay; K31.84 Gastroparesis; M32.9 Systemic lupus erythematosus, unspecified; D72.819 Decreased white blood cell count, unspecified
CPT/HCPCS: 73120; 73220; 80048; 80053; 84703; 85025; 85027; 87040; 87070; 87147; 87186; 87205; 97110; 97165; 99285; A9575